=== PATIENT | female | born 1990 | race Caucasian/White ===

== ENCOUNTER 2022-03-26 12:24 | Emergency (ER) | payer SELFPAY ==
[~2022-03-26] VITALS: Ht 157.5 cm; Wt 54.4 kg
[2022-03-26] MEDS ORDERED: SWABABLE VALVE TRANSFER SET EA MC ONE (13:00)
[2022-03-26] MEDS ORDERED: IV NORMAL SALINE 250 ML IV ONE (13:00)
[2022-03-26] MEDS ORDERED: IOHEXOL 300MG/ML 100 ML INFUS..BTL ONE (13:00)
[2022-03-26] MEDS ORDERED: ACETAMINOPHEN 325 MG TABLET PO ONE (13:00)
[2022-03-26] MEDS ORDERED: ACETAMINOPHEN 325 MG TABLET ONE (13:19)
[2022-03-26 13:25] LABS: MEAN CORPUSCULAR HEMOGLOBIN 33.5 uug (24.7-32.8); MEAN CORPUSCULAR VOLUME 97.6 fL (75.5-95.3); PLATELET COUNT (AUTO) 246 K/uL (179-408)
[2022-03-26 13:27] LABS: CARBON DIOXIDE 28 mmol/L (21-32); CHLORIDE 104 mmol/L (98-107); CREATININE 0.8 mg/dL (0.6-1.3); GLUCOSE 104 mg/dL (74-106); POTASSIUM 4.2 mmol/L (3.5-5.1); UREA NITROGEN, BLOOD 14 mg/dL (7-18)
[2022-03-26 13:33] LABS: ALANINE AMINOTRANSFERASE 25 U/L (14-59); ALKALINE PHOSPHATASE 55 U/L (50-136); ASPARTATE AMINOTRANSFERASE 23 U/L (15-37); BILIRUBIN,TOTAL 0.5 mg/dL (0.2-1.0); LIPASE 124 U/L (73-393); TOTAL PROTEIN, SERUM 7.7 g/dL (6.4-8.2)
--- NOTE | 2022-03-26 13:41 | NUR ---
20G iv placed in left AC. tolerated. iv secured with tape.
[2022-03-26 14:06] LABS: *BILIRUBIN,URIN NEGATIVE (NEGATIVE); *BLOOD, URINE NEGATIVE (NEGATIVE); *CLARITY,URINE CLEAR (CLEAR); *COLOR,URINE YELLOW (YELLOW); *KETONES,URINE NEGATIVE (NEGATIVE); *UROBILINOGEN,URINE 0.2 E.U./dl (NORMAL); LEUKOCYTE ESTERASE ,URINE NEGATIVE (NEGATIVE); NITRITE, URINE NEGATIVE (NEGATIVE); UGLUCOSE NEGATIVE (NEGATIVE)
== END 2022-03-26 15:10 | disposition home or self-care (01) ==
LOC: ER 12:24
DX: R10.31 Right lower quadrant pain (principal); E28.2 Polycystic ovarian syndrome; R11.0 Nausea
CPT/HCPCS: 99285; 74177; 76705; 80053; 81003; 83690; 85025; 84702; 36415; Q9967; A4663

== ENCOUNTER 2022-06-29 14:40 | Emergency (ER) | payer BC ==
[~2022-06-29] VITALS: Ht 157.5 cm; Wt 54.4 kg
[2022-06-29] MEDS ORDERED: IV NORMAL SALINE 1000 ML BAG IV ONE (15:15)
[2022-06-29 15:30] LABS: MEAN CORPUSCULAR HEMOGLOBIN 34.2 uug (24.7-32.8); PLATELET COUNT (AUTO) 218 K/uL (179-408)
[2022-06-29] MEDS ORDERED: PENICILLIN G BENZATHINE 2.4 MMU/4 ML DISP.SYRIN IM ONE ×2 (16:00→16:25)
[2022-06-29] MEDS ORDERED: DEXAMETHASONE 4 MG TABLET PO ONE (16:00)
[2022-06-29] MEDS ORDERED: ONDANSETRON 4 MG/2 ML VIAL IV ONE (16:00)
[2022-06-29] MEDS ORDERED: KETOROLAC TROMETHAMINE 15 MG INJ IVP ONE (16:00)
[2022-06-29 16:07] LABS: BILIRUBIN,DIRECT 0.1 mg/dL (0.0-0.2); BILIRUBIN,TOTAL 0.5 mg/dL (0.2-1.0); CREATININE 0.7 mg/dL (0.6-1.3); POTASSIUM 3.8 mmol/L (3.5-5.1); TOTAL PROTEIN, SERUM 7.6 g/dL (6.4-8.2)
[2022-06-29] MEDS ORDERED: KETOROLAC TROMETHAMINE 15 MG INJ ONE (16:24)
[2022-06-29] MEDS ORDERED: ONDANSETRON 4 MG/2 ML VIAL ONE (16:24)
[2022-06-29] MEDS ORDERED: DEXAMETHASONE 4 MG TABLET ONE (16:28)
[2022-06-29 16:57] VITALS: BP 142/105
--- NOTE | 2022-06-29 16:58 | NUR ---
Patient discharged to home in stable condition. Written and verbal after care instructions given. Patient verbalizes understanding of instructions. Stressed follow up or return to ER for worsening s/s.
== END 2022-06-29 16:58 | disposition home or self-care (01) ==
LOC: ER 14:40
DX: J02.0 Streptococcal pharyngitis (principal)
CPT/HCPCS: 99284; 96374; 96375; 80076; 80048; 85025; 96372; J0561; J8540; J1885; J2405; J7040; 36415; A4663

== ENCOUNTER 2022-11-26 11:39 | Emergency (ER) | payer BC ==
[~2022-11-26] VITALS: Ht 157.5 cm; Wt 52.6 kg
--- NOTE | 2022-11-26 12:00 | NUR ---
at bedside to examine pt.
[2022-11-26 12:42] LABS: HEMATOCRIT 37.2 % (31.2-41.9); MEAN CORPUSCULAR HEMOGLOBIN 34.7 uug (24.7-32.8); MEAN CORPUSCULAR VOLUME 99.7 fL (75.5-95.3); PLATELET COUNT (AUTO) 320 K/uL (179-408)
[2022-11-26 13:20] LABS: *URINE HCG, QUAL NEG (NEGATIVE)
--- NOTE | 2022-11-26 13:34 | NUR ---
Patient prepared for pelvic test.
--- NOTE | 2022-11-26 13:44 | NUR ---
Patient connected to recheck heart rate and is on NSR rate 70-90's. . tracy.
--- NOTE | 2022-11-26 13:45 | NUR ---
DCD instructions given to pt. who verbalized understanding, instructed by to follow up with her OBGYN. Pt. left room in stable condition no c/of kemal.
[2022-11-27] MEDS ORDERED: MORPHINE SULFATE 2 MG/1 ML DISP.SYRIN ONE (14:35)
== END 2022-11-26 13:45 | disposition home or self-care (01) ==
LOC: ER 11:39
DX: N93.9 Abnormal uterine and vaginal bleeding, unspecified (principal); G43.909 Migraine, unspecified, not intractable, without status migrainosus
CPT/HCPCS: 36415; 76856; 84703; 85025; 85610; 86900; 86901; A4663; J2270

== ENCOUNTER 2025-01-08 14:13 | Emergency (ER) | payer OTHER ==
[~2025-01-08] VITALS: Ht 154.9 cm; Wt 55.3 kg
[2025-01-08] MEDS ORDERED: TETRACAINE HCL 0.5% OPHT DROP 2 ML BOTTLE ONE (14:37)
[2025-01-08] MEDS ORDERED: FLUORESCEIN SODIUM 1 MG STRIP ONE (14:37)
[2025-01-08] MEDS ORDERED: GENT5DRO4 LEFTEYE (14:39)
[2025-01-08] MEDS: FLUORESCEIN SODIUM 1 MG STRIP OP ONE (14:46)
[2025-01-08] MEDS: TETRACAINE HCL 0.5% OPHT DROP 2 ML BOTTLE OP ONE (14:46)
[2025-01-08 15:10] VITALS: BP 137/74; TEMP 97.8; O2SAT 99
== END 2025-01-08 15:10 | disposition home or self-care (01) ==
LOC: ER 14:13
DX: S05.02XA Injury of conjunctiva and corneal abrasion without foreign body, left eye, initial encounter (principal); G43.909 Migraine, unspecified, not intractable, without status migrainosus; Z87.09 Personal history of other diseases of the respiratory system; Z88.7 Allergy status to serum and vaccine; Z87.19 Personal history of other diseases of the digestive system; Z87.39 Personal history of other diseases of the musculoskeletal system and connective tissue; X58.XXXA Exposure to other specified factors, initial encounter; Y93.89 Activity, other specified; Y92.098 Other place in other non-institutional residence as the place of occurrence of the external cause; Y99.8 Other external cause status
CPT/HCPCS: A4606; A4663

== ENCOUNTER 2025-04-08 11:33 | Emergency (ER) | payer MEDICAID, OTHER ==
[~2025-04-08] VITALS: Ht 154.9 cm; Wt 55.8 kg
[~2025-04-08 11:33] MED LIST: GENT5DRO4 LEFTEYE
[2025-04-08 11:35] VITALS: BP 122/67; O2SAT 99
[2025-04-08] MEDS ORDERED: MELO-105 PO (11:56)
== END 2025-04-08 12:01 | disposition home or self-care (01) ==
LOC: ER 11:33
DX: M17.11 Unilateral primary osteoarthritis, right knee (principal); G43.909 Migraine, unspecified, not intractable, without status migrainosus; Z79.1 Long term (current) use of non-steroidal anti-inflammatories (NSAID); Z88.7 Allergy status to serum and vaccine; Z87.09 Personal history of other diseases of the respiratory system; Z87.19 Personal history of other diseases of the digestive system; Z87.39 Personal history of other diseases of the musculoskeletal system and connective tissue
CPT/HCPCS: A4606; A4663